=== PATIENT | female | born 2000 | race Two or more races ===

== ENCOUNTER 2023-11-27 17:57 | Emergency (ER) | payer SELFPAY ==
[~2023-11-27] VITALS: Ht 157.5 cm; Wt 58.0 kg
[2023-11-27 18:09] VITALS: BP 108/78; PULSE 103; RESP 18; TEMP 98.2; O2SAT 99
[2023-11-27] MEDS: METOCLOPRAMIDE HCL 10MG/2ML VIAL IM ONE (18:47)
[2023-11-27 19:03] LABS: BASOPHILS % 0.5 % (0.0-2.0); EOSINOPHILS % 0.2 % (0.0-5.0); HEMATOCRIT. 35.5 % (36.0-48.0); HEMOGLOBIN. 12.1 g/dL (12.0-16.0); LYMPHOCYTES % 17.2 % (20.0-50.0); MEAN CORPUSCULAR HEMOGLOBIN 30.2 pg (28.0-32.0); MEAN CORPUSCULAR HGB CONC 34.2 g/dL (31.0-37.0); MEAN CORPUSCULAR VOLUME 88.3 fL (81.0-99.0); MEAN PLATELET VOLUME 9.5 fl (7.4-10.4); MONOCYTES % 14.4 % (2.0-8.0); NEUTROPHILS % 67.7 % (40.0-76.0); PLATELET 236 x1000/uL (130-400); RED BLOOD CELL COUNT 4.02 mill/uL (4.2-5.4); RED CELL DISTRIBUTION WIDTH 12.9 % (11.6-14.6); WHITE BLOOD COUNT 4.5 x1000/uL (4.5-11.0)
[2023-11-27 19:05] LABS: CARBON DIOXIDE 22 mEq/L (21-32); CHLORIDE 104 mEq/L (98-107); POTASSIUM 3.7 mEq/L (3.5-5.1); SODIUM 134 mEq/L (136-145)
[2023-11-27 19:06] LABS: CALCIUM 9.7 mg/dL (8.7-10.4)
[2023-11-27 19:10] LABS: CREATININE 0.6 mg/dL (0.6-1.0)
[2023-11-27 19:11] LABS: GLUCOSE 85 mg/dL (70-105); UREA NITROGEN BLOOD 7 mg/dL (9-23)
[2023-11-27 19:12] LABS: ALANINE AMINOTRANSFERASE < 7 IU/L (10-49); ASPARTATE AMINOTRANSFERASE 16 IU/L (<34)
[2023-11-27 19:13] LABS: ALBUMIN 4.7 g/dL (3.2-4.8); BILIRUBIN DIRECT 0.1 mg/dL (<=3.0); BILIRUBIN TOTAL 0.4 mg/dL (0.1-1.0); PROTEIN TOTAL 7.7 g/dL (6.0-8.3)
[2023-11-27 19:37] LABS: B-HCG QUANTITATIVE > 200000 mIU/mL (<3)
== END 2023-11-27 20:56 | disposition left against medical advice (07) ==
LOC: EDSEX 17:57 → ER 17:57
DX: R68.89 Other general symptoms and signs (principal); Z53.21 Procedure and treatment not carried out due to patient leaving prior to being seen by health care provider
CPT/HCPCS: 80076; 80048; 84702; 83690; 85025; 36415; J2765; Z7610 ×2